=== PATIENT | male | born 1940 | race Two or more races ===

== ENCOUNTER 2018-11-23 10:14 | Emergency (ER) | payer OTHER ==
[~2018-11-23] VITALS: Ht 175.3 cm; Wt 77.1 kg
[2018-11-23] MEDS ORDERED: GARDASIL (10:35)
== END 2018-11-23 12:04 | disposition home or self-care (01) ==
LOC: ER 10:14
DX: M54.89 Other dorsalgia (principal)

== ENCOUNTER 2018-11-24 08:41 | Outpatient (CLI) | payer OTHER ==
[~2018-11-24 08:41] MED LIST: GARDASIL
== END 2018-11-24 15:34 | disposition home or self-care (01) ==
LOC: MRI 08:41
DX: S72.009A Fracture of unspecified part of neck of unspecified femur, initial encounter for closed fracture (principal); S72.143A Displaced intertrochanteric fracture of unspecified femur, initial encounter for closed fracture; S12.9XXA Fracture of neck, unspecified, initial encounter; S22.009A Unspecified fracture of unspecified thoracic vertebra, initial encounter for closed fracture
CPT/HCPCS: 72148

== ENCOUNTER 2018-12-01 12:27 | Outpatient (CLI) | payer OTHER | END 2018-12-01 12:35 | disposition home or self-care (01) | LOC: RAD 12:27 | DX: M50.01 Cervical disc disorder with myelopathy, high cervical region (principal) ==

== ENCOUNTER 2018-12-20 07:42 | Inpatient (IN) | payer OTHER ==
[~2018-12-20] VITALS: Ht 172.7 cm; Wt 90.7 kg
[2018-12-20] MEDS ORDERED: OMEPRAZOLE40 MG (07:56)
== END 2018-12-27 13:08 | disposition home or self-care (01) | DRG 340 ==
LOC: ER 07:42 → SEC-K 14:37 → SURG 14:37 → O/R 17:21 → SURG 19:40
PROVIDERS: ADMIT Surgery
PROC: BW21Y0Z Computerized Tomography (CT Scan) of Abdomen and Pelvis using Other Contrast, Unenhanced and Enhanced (ICD-10-PCS; 2018-12-20)
PROC: 0D9J00Z Drainage of Appendix with Drainage Device, Open Approach (ICD-10-PCS; principal; 2018-12-20 16:00)
PROC: BW21YZZ Computerized Tomography (CT Scan) of Abdomen and Pelvis using Other Contrast (ICD-10-PCS; 2018-12-25)
DX: K35.33 Acute appendicitis with perforation, localized peritonitis, and gangrene, with abscess (principal); R31.0 Gross hematuria; B95.2 Enterococcus as the cause of diseases classified elsewhere; B96.29 Other Escherichia coli [E. coli] as the cause of diseases classified elsewhere; K57.30 Diverticulosis of large intestine without perforation or abscess without bleeding; I10 Essential (primary) hypertension; N40.0 Benign prostatic hyperplasia without lower urinary tract symptoms; Z88.0 Allergy status to penicillin

== ENCOUNTER → 2024-09-06 | Emergency (ER) | payer OTHER ==
[~2024-09-06] MED LIST changes: +CARVEDILOL12.5 MG; +CHILDREN'S ASPI81 MG; +OMEPRAZOLE40 MG
== END | disposition home or self-care (01) ==
LOC: ER 09:25
DX: R06.02 Shortness of breath (principal); R07.89 Other chest pain; R53.1 Weakness

== ENCOUNTER 2024-09-16 02:38 | Emergency (ER) | payer OTHER ==
[~2024-09-16 02:38] MED LIST changes: -CARVEDILOL12.5 MG; -CHILDREN'S ASPI81 MG
== END 2024-09-16 15:50 | disposition left against medical advice (07) ==
LOC: ER 02:38
DX: Z53.21 Procedure and treatment not carried out due to patient leaving prior to being seen by health care provider (principal)

== ENCOUNTER 2024-10-04 11:10 | Emergency (ER) | payer OTHER, BC ==
[~2024-10-04] VITALS: Ht 180.3 cm; Wt 68.0 kg
[2024-10-04] MEDS ORDERED: ASPIRIN 325 MG TABLET PO ONE (12:00)
[2024-10-04] MEDS ORDERED: CARVEDILOL12.5 MG (12:40)
[2024-10-04] MEDS ORDERED: CHILDREN'S ASPI81 MG (12:40)
[2024-10-04 12:52] LABS: HEMATOCRIT 40.4 % (40.1-51.0); HEMOGLOBIN 13.8 g/dL (13.7-17.5); RED BLOOD COUNT 4.89 M/uL (4.63-6.08)
[2024-10-04 12:53] LABS: BASO % 0.5 % (0.1-1.2); EOS # 0.52 (0.04-0.54); EOS % 7.1 % (0.7-7.0); LYMPH # 2.01 (1.18-3.74); LYMPH % 27.3 % (19.3-53.1); MEAN CORPUSCULAR HEMOGLOBIN 28.2 pg (25.6-32.2); MONO # 0.64 (0.24-0.82); MONO % 8.7 % (4.7-12.5); NEUT # 4.14 (1.56-6.13); NEUT % 56.3 % (34.0-71.1); PLATELET COUNT 153 K/uL (163-369); RED CELL DISTRIBUTION WIDTH 13.9 % (11.6-14.4)
[2024-10-04 13:08] LABS: ALBUMIN 3.2 gm/dL (3.4-5.0); BILIRUBIN TOTAL 0.49 mg/dL (0.3-1.2); CALCIUM 8.3 mg/dL (8.5-10.1); CREATININE SERUM 0.99 mg/dL (0.70-1.30); GFR 72.19; GLOBULINA 3.4 G/DL (2.4-3.5); POTASSIUM 4.11 mEq/L (3.5-5.1); TOTAL PROTEIN 6.6 gm/dL (6.4-8.2)
[2024-10-04 13:10] LABS: INR 1.08; PARTIAL THROMBOPLASTIN TIME 32.2 SECONDS (22.0-34.0); PROTHROMBIN TIME 11.7 SECONDS (9.0-11.5)
== END 2024-10-04 18:15 | disposition home or self-care (01) ==
LOC: ER 11:10
PROVIDERS: General Practice
DX: R07.89 Other chest pain (principal); M54.50 Low back pain, unspecified; K63.1 Perforation of intestine (nontraumatic); K35.890 Other acute appendicitis without perforation or gangrene; I10 Essential (primary) hypertension; E11.9 Type 2 diabetes mellitus without complications; Z88.0 Allergy status to penicillin